=== PATIENT | female | born 1960 | race American Indian/Alaskan Native ===

== ENCOUNTER 2017-07-22 15:56 | Emergency (ER) | payer OTHER ==
[~2017-07-22] VITALS: Ht 167.6 cm; Wt 72.1 kg
[~2017-07-22 15:56] MED LIST: ADVIL200 MG PO; AUGMENTIN 875-1 EACH PO; AZITHROMYCIN500 MG PO; CEPHALEXIN500 MG PO; DIFLUCAN150 MG PO; GLIPIZIDE XL10 MG PO; GLIPIZIDE XL5 MG PO; JANUVIA100 MG PO; JANUVIA50 MG PO; LEVOFLOXACIN500 MG PO; METFORMIN HCL500 MG PO; MIRALAX17 GM PO; NASAL MIST126 ML NAS; NICORETTE2 MG MM; NICOTINE LOZENGE2 MG BUCCAL; NICOTINE PATCH1 EAC1 TD; NORCO 5-325 TA1 EACH PO; SUDAFED 12 HOU120 MG PO
[2017-07-22] MEDS ORDERED: HUMULIN R500 UNIT/1 SUB-Q (16:13)
[2017-07-22] MEDS ORDERED: NORCO 5-325 TA1 EACH PO (18:04)
--- NOTE | 2017-07-23 15:50 | EKG ---
[facility] [address] [facility] [place] [address] Signed Normal sinus rhythm Left axis deviation Right bundle branch block Abnormal ECG No previous ECGs available Confirmed by ALISA SYLVESTER MD ([id number]) on 07/23/2017 3:49:53 PM Electronically Signed By: ALISA SYLVESTER MD 07/23/17 1550 PATIENT NAME: DANTE CHAMBERLAIN Electrocardiogram DATE OF : 64 PHYSICIAN: ALISA SYLVESTER MD REPORT #: [id number] REPORT IS CONFIDENTIAL AND NOT TO BE RELEASED WITHOUT AUTHORIZATION
[2017-11-19] MEDS ORDERED: HYDROXYZINE HCL50 MG PO (21:45)
[2017-11-19] MEDS ORDERED: DICLOFENAC POTA50 MG PO (21:48)
== END 2017-07-22 18:36 | disposition home or self-care (01) ==
LOC: ED 15:56
DX: S42.292A Other displaced fracture of upper end of left humerus, initial encounter for closed fracture (principal); E11.9 Type 2 diabetes mellitus without complications; F17.200 Nicotine dependence, unspecified, uncomplicated; Z88.8 Allergy status to other drugs, medicaments and biological substances; Z79.84 Long term (current) use of oral hypoglycemic drugs; W01.198A Fall on same level from slipping, tripping and stumbling with subsequent striking against other object, initial encounter
CPT/HCPCS: 73030; 93005; 93010; 96374; 96375; 99283; J1170; J1885

== ENCOUNTER 2017-08-07 08:20 | Day surgery (SDC) | payer OTHER ==
[~2017-08-07] VITALS: Ht 167.6 cm; Wt 72.1 kg
[~2017-08-07 08:20] MED LIST changes: +HUMULIN R500 UNIT/1 SUB-Q
--- NOTE | 2017-08-07 11:40 | NUR ---
08/07/17 1140 Anushka Kothari 1119 PT ARRIVED IN PACU WITH ET TUBE IN PLACE. ANESTHESIA DC'D ON ARRIVAL. OXYGEN MASK ON AT 6L WITH SATS 100%.
--- NOTE | 2017-08-07 11:50 | NUR ---
IN TO ROOM, PT ARRIVED FROM PACU. PT TALKING WITH RN'S AND FAMILY IN ROOM. DENIES PAIN AND NAUSEA. WATE AND ICE CREAM GIVEN. VITALS STABLE. DISCUSSED DISCHARGE CRITERIA, PT UNDERSTANDS. CRYO CUFF IN PLACE. NO FURTHER NEEDS AT THE TIME. CALL LIGHT IN REACH.
--- NOTE | 2017-08-07 12:00 | NUR ---
PT'S SISTER TO NURSES STATION FOR RX TO BE DROPPED OFF AT PHARMACY. NO RX FOUND IN CHART OR PACU. CALLED DR. SHIRLEY, WILL SEND RX FROM OFFICE. PT'S SISTER NOTIFIED.
--- NOTE | 2017-08-07 12:20 | NUR ---
IN TO CHECK ON PT, PT TOLERATED WATER AND ICE CREAM. TURKEY SANDWICH ORDERED PER PT REQUEST. NO FURTHER NEEDS AT THIS TIME. CALL LIGHT IN REACH, FAMILY AT BEDSIDE.
--- NOTE | 2017-08-07 13:22 | NUR ---
LE 1300: IN TO SEE PT, PT TOLERATING PO AND SANDWICH. PO PAIN MEDICATION GIVEN. PT ASSITED UP TO BATHROOM, TOLERATED WELL. DENIES PAIN, NAUSEA AND DIZZINESS. PT ADVISED THAT SHE HAD MEET CREATIA FOR DC, PT STATES SHE IS READY TO GO. IV DC'D. PT DRESSED WITH HELP FROM DAUGHTER. INSTRUCTIONS GIVEN, CRYO CUFF SENT WITH PT. ALL QUESTIONS ANSWER. PT WHEELED OUT TO SISTERS CAR.
--- NOTE | 2017-08-08 08:13 | OR ---
[facility] [address] [place], [place] [address] Signed DATE OF OPERATION: 08/07/2017 SURGEON: Meenu Dumont MD PREOPERATIVE DIAGNOSIS: Displaced left proximal humerus fracture, surgical neck. POSTOPERATIVE DIAGNOSIS: Displaced left proximal humerus fracture, surgical neck. PROCEDURE PERFORMED: Open reduction and internal fixation, left proximal humerus. ORACLE BPM DEVELOPER: RAQUEL Montano was critical for positioning, retraction, and wound closure. ANESTHESIA: General with interscalene block. BLOOD LOSS: 125 mL. IMPLANTS: Synthes small proximal humeral locking plate with 3.5 screws. BRIEF HISTORY: Dante is a 57-year-old female, who suffered a ground-level fall about 3 weeks ago. She was initially not medically stable for surgery including methamphetamine use and a blood sugar of 400. DESCRIPTION OF PROCEDURE: Once we got her stabilized, she was taken to the operating room. After adequate anesthesia, she was placed on the operating table in a beach chair position. All downside pressure points were well padded. The shoulder was prepped and draped in standard sterile fashion. The shoulder was approached through standard deltopectoral interval. The skin was incised and taken down to the fascia. The clavipectoral fascia was then incised longitudinally. The cephalic vein was identified and dissected and mobilized laterally. The subdeltoid adhesions were released. There were significant Electronically Signed By: MEENU DUMONT MD 08/08/17 0813 PATIENT NAME: DANTE CHAMBERLAIN OPERATIVE REPORT DATE OF : 64 PHYSICIAN: MEENU DUMONT MD REPORT #: [id number] REPORT IS CONFIDENTIAL AND NOT TO BE RELEASED WITHOUT AUTHORIZATION [facility] [address] [place], [place] [address] Signed adhesions throughout. There was some scarring of the fracture site, although it was quite mobile. We distracted the fracture and cleaned out the fracture site and reduced as best we could given the extensive scarring that had gone on in the periosteum. This was then held using a K-wire and the reduction was found to be adequate, although it was not perfect. The plate was fashioned to fit the lateral aspect of the proximal humerus just posterior to above biceps tuberosity. It was held in position initially using a pin followed by single screw in the proximal into the plate. We then reduced the head to the shaft of the humerus using a 3.5 screw distally. Once we had adequate reduction, then multiple screws were placed proximally using locking technique 3 screws were placed distally. Excellent apposition of the fracture and adequate alignment, although it was off a little bit posteriorly. The screws were in good position. There were no screws too long. The wound was then copiously irrigated with antibiotic solution, closed with #0 Vicryl for the deltopectoral interval and #0 Stratafix for subcutaneous tissue. A Dermabond mesh was applied to the skin, dressed with Mepilex Ag dressing and an Opsite. She was awakened and taken to recovery room in satisfactory condition. All sponge, needle, and instrument counts were correct. Meenu Dumont MD BA/MODL /[id number] cc: [facility] Electronically Signed By: MEENU DUMONT MD 08/08/17 0813 PATIENT NAME: DANTE CHAMBERLAIN OPERATIVE REPORT DATE OF : 64 PHYSICIAN: MEENU DUMONT MD REPORT #: [id number] REPORT IS CONFIDENTIAL AND NOT TO BE RELEASED WITHOUT AUTHORIZATION
[2017-11-19] MEDS ORDERED: HYDROXYZINE HCL50 MG PO (21:45)
[2017-11-19] MEDS ORDERED: DICLOFENAC POTA50 MG PO (21:48)
== END 2017-08-07 13:16 | disposition home or self-care (01) ==
LOC: DS 08:20
PROVIDERS: Specialist
PROC: 0PSD04Z Reposition Left Humeral Head with Internal Fixation Device, Open Approach (ICD-10-PCS; principal; 2017-08-07 11:30)
DX: S42.212A Unspecified displaced fracture of surgical neck of left humerus, initial encounter for closed fracture (principal); E11.9 Type 2 diabetes mellitus without complications; Z98.890 Other specified postprocedural states; Z79.899 Other long term (current) drug therapy; Z88.8 Allergy status to other drugs, medicaments and biological substances
CPT/HCPCS: 00450; 64415; 64417; 73030; 76942; C1713; J0330; J0690; J1100; J2250; J2370; J2405; J2704; J2795; J3010; J7120

== ENCOUNTER → 2017-11-19 | Emergency (ER) | payer OTHER ==
[~2017-11-19] VITALS: Ht 167.6 cm; Wt 72.1 kg
[~2017-11-19] MED LIST changes: +DICLOFENAC POTA50 MG PO; +HYDROXYZINE HCL50 MG PO
--- NOTE | 2017-11-20 14:39 | EKG ---
[facility] [address] [place] [address] Signed Normal sinus rhythm Right bundle branch block Left anterior fascicular block Bifascicular block Cannot rule out Inferior infarct (masked by fascicular block?) , age undetermined Abnormal ECG When compared with ECG of 22-JUL-2017 16:26, Left anterior fascicular block is now present Minimal criteria for Inferior infarct are now present Confirmed by ALISA SYLVESTER MD ([id number]) on 11/20/2017 2:38:54 PM Electronically Signed By: ALISA SYLVESTER MD 11/20/17 1439 PATIENT NAME: DANTE CHAMBERLAIN Electrocardiogram DATE OF : 64 PHYSICIAN: ALISA SYLVESTER MD REPORT #: [id number] REPORT IS CONFIDENTIAL AND NOT TO BE RELEASED WITHOUT AUTHORIZATION
== END ==
LOC: ED 21:33
DX: R07.9 Chest pain, unspecified (principal); E11.65 Type 2 diabetes mellitus with hyperglycemia; F17.200 Nicotine dependence, unspecified, uncomplicated; Z79.84 Long term (current) use of oral hypoglycemic drugs; Z79.899 Other long term (current) drug therapy
CPT/HCPCS: 71045; 80053; 84484; 85025; 93005; 93010; 99284

== ENCOUNTER → 2018-07-06 | Emergency (ER) | payer OTHER ==
[~2018-07-06] VITALS: Ht 167.6 cm; Wt 70.3 kg
[~2018-07-06] MED LIST changes: +GLUCOTROL XL5 MG PO; +HYDROCODON-ACE1 EA10 PO; +IBUPROFEN600 MG PO; +ONE TOUCH ULTR1 EACH XX
--- NOTE | 2018-07-07 07:00 | EKG ---
[facility] [address] [facility] [place] [address] Signed Normal sinus rhythm Right bundle branch block Left anterior fascicular block Bifascicular block Abnormal ECG When compared with ECG of 23-APR-2018 18:33, No significant change was found Confirmed by BRIANNE LAN MD ([id number]) on 07/07/2018 7:00:45 AM Electronically Signed By: BRIANNE LAN MD 07/07/18 0700 PATIENT NAME: DANTE CHAMBERLAIN [place] Electrocardiogram DATE OF : 64 PHYSICIAN: BRIANNE LAN MD REPORT #: [id number] REPORT IS CONFIDENTIAL AND NOT TO BE RELEASED WITHOUT AUTHORIZATION
== END ==
LOC: ED 21:47
DX: L27.0 Generalized skin eruption due to drugs and medicaments taken internally (principal); I95.9 Hypotension, unspecified; T43.625A Adverse effect of amphetamines, initial encounter; E11.9 Type 2 diabetes mellitus without complications; F17.200 Nicotine dependence, unspecified, uncomplicated; Z88.8 Allergy status to other drugs, medicaments and biological substances; Z79.84 Long term (current) use of oral hypoglycemic drugs; Z79.899 Other long term (current) drug therapy
CPT/HCPCS: 71045; 80053; 81001; 83605; 84703; 85025; 87077; 87088; 87186; 93005; 93010; 96374; 99284-25; J7030

== ENCOUNTER 2018-10-25 02:15 | Emergency (ER) | payer OTHER ==
[~2018-10-25] VITALS: Ht 167.6 cm; Wt 74.8 kg
--- OUTSIDE RECORDS SUMMARY | ~2018-10-25 | XMS | Clinical Summary ---
Demographics + + + | Address | [address] | | | [place] [address] | + + + | Home Phone | | + + + | Preferred Language | Unknown | + + + | Marital Status | Single | + + + | Baptist Affiliation | 1076 | + + + | Race | Unknown | + + + | Ethnic Group | Unknown | + + + Author + + + | Author | [facility] | + + + | Organization | [facility] | + + + | Address | Unknown | + + + | Phone | Unavailable | + + + Support + + +---------+ + | Name | Relationship | Address | Phone | + + +---------+ + | Jayna Chamberlain | ECON | Unknown | | + + +---------+ + Care Team Providers + +------+ + | Care Gas Line Servicer Name | Role | Phone | + +------+ + | Bud Delacruz MD | PP | | + +------+ + Allergies + + + + + + | Active Allergy | Reactions | Severity | Noted | Comments | | | | | Date | | + + + + + + | Pioglitazone | Swelling | Medium | 09/10/19 | | | | | | 17 | | + + + + + + | Metformin | Rash | Medium | 09/10/19 | | | | | | 17 | | + + + + + + | Paroxetine | Angioedema | High | 09/10/19 | | | | | | 17 | | + + + + + + Current Medications + + + +---------+------+------+-------+ | Prescription | Sig. | Disp. | Refills | Star | End | Statu | | | | | | t | Date | s | | | | | | Date | | | + + + +---------+------+------+-------+ | glipiZIDE | Take 10 mg by mouth | | | | | Activ | | (GLUCOTROL) 10 MG | daily. | | | | | e | | tablet | | | | | | | + + + +---------+------+------+-------+ | azithromycin | Take 500 mg by mouth | | | | | Activ | | (ZITHROMAX) 500 MG | daily. | | | | | e | | tablet | | | | | | | + + + +---------+------+------+-------+ | Spacer/Aero | 1 Units by Does not | 1 each | 2 | 09/24 | | Activ | | Chamber Mouthpiece | apply route as | | | 07/15 | | e | | MISCIndications: | needed (Pls use with | | | 17 | | | | Reactive airway | your albuterol | | | | | | | disease, unspecified | inhaler). | | | | | | | asthma severity, | | | | | | | | uncomplicated | | | | | | | + + + +---------+------+------+-------+ Active Problems + + + | Problem | Noted Date | + + + | Lung consolidation (HCC) | 09/09/2016 | + + + | Personal history of tobacco use, presenting hazards to health | 09/09/2016 | + + + Social History + +-------+ +--------+ + | Tobacco Use | Types | Packs/Day | Years | Date | | | | | Used | | + +-------+ +--------+ + | Former Smoker | | 1 | 30 | Quit: 08/31/2016 | + +-------+ +--------+ + + +---+---+---+ | Smokeless Tobacco: | | | | | Never Used | | | | + +---+---+---+ + + +---------+ + | Alcohol Use | Drinks/We | oz/Week | Comments | | | ek | | | + + +---------+ + | No | | | | + + +---------+ + + + + | Sex Assigned at | Date Recorded | | | | + + + | Not on file | | + + + Last Filed Vital Signs + + + + | Vital Sign | Reading | Time Taken | + + + + | Blood Pressure | 155/83 | 10/04/2016 3:02 PM PDT | + + + + | Pulse | 84 | 10/04/2016 3:02 PM PDT | + + + + | Temperature | 36.4 C (97.5 F) | 10/04/2016 3:02 PM PDT | + + + + | Respiratory Rate | - | - | + + + + | Oxygen Saturation | 99% | 10/04/2016 3:02 PM PDT | + + + + | Inhaled Oxygen | - | - | | Concentration | | | + + + + | Weight | 72.1 kg (159 lb) | 10/04/2016 3:02 PM PDT | + + + + | Height | 167.6 cm (5' 6") | 10/04/2016 3:02 PM PDT | + + + + | Body Mass Index | 25.66 | 10/04/2016 3:02 PM PDT | + + + + Plan of Treatment + + + + + | Health Maintenance | Due Date | Last Done | Comments | + + + + + | Vaccine: | | | | | Dtap/Tdap/Td (1 - | 1 | | | | Tdap) | | | | + + + + + | Cervical Cancer | | | | | Screening (Pap) | 2 | | | + + + + + | Breast Cancer | | | | | Screening | 2 | | | | (Mammogram) | | | | + + + + + | Colon Cancer | | | | | Screening | 2 | | | | (Colonoscopy) | | | | + + + + + | Vaccine: Zoster (1 | | | | | of 2) | 2 | | | + + + + + | Lung Cancer | | 10/03/2016, 09/01/2016 | | | Screening | 8 | | | + + + + + | Vaccine: Influenza | | | | | (Season Ended) | 9 | | | + + + + + Results Not on filefrom Last 3 Months Insurance + +--------+ +------+-------+ + | Payer | Benefi | Subscriber | Type | Phone | Address | | | t Plan | ID | | | | | | / | | | | | | | Group | | | | | + +--------+ +------+-------+ + | MEDICAID | [place] | [id number] | | | [address] | | | N | | | | [place], [place] | | | [place] | | | | [phone] | | | 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
--- OUTSIDE RECORDS SUMMARY | ~2018-10-25 | XMS | Clinical Summary ---
Demographics + + + | Address | [address] | | | [place] [address] | + + + | Home Phone | | + + + | Preferred Language | Unknown | + + + | Marital Status | Unknown | + + + | Jehovah'S Witness Affiliation | Unknown | + + + | Race | Unknown | + + + | Ethnic Group | Unknown | + + + Author + + + | Author | [facility] | | | [facility] | + + + | Organization | [facility] | | | [facility] [place] | + + + | Address | Unknown | + + + | Phone | Unavailable | + + + Care Team Providers + +------+ + | Care Light Rail Vehicle Operator Name | Role | Phone | + +------+ + PP | Unavailable | + +------+ + Allergies Not on File Medications Not on file Active Problems Not on file Social History + +-------+ +--------+------+ | Tobacco Use | Types | Packs/Day | Years | Date | | | | | Used | | + +-------+ +--------+------+ | Never Assessed | | | | | + +-------+ +--------+------+ + + + | Sex Assigned at | Date Recorded | | | | + + + | Not on file | | + + + + + + + | Job Start Date | Occupation | Industry | + + + + | Not on file | Not on file | Not on file | + + + + + + + + | Travel History | Travel Start | Travel End | + + + + + + | No recent travel history available. | + + Plan of Treatment + + [...] + Results Not on filefrom Last 3 Months"
--- OUTSIDE RECORDS SUMMARY | ~2018-10-25 | XMS | Clinical Summary ---
Demographics + + + | Address | [address] | | | [place] [address] | + + + | Home Phone | | + + + | Preferred Language | Unknown | + + + | Marital Status | Single | + + + | Church Affiliation | 1076 | + + + | Race | Unknown | + + + | Ethnic Group | Unknown | + + + Author + + + | Author | [facility] | + + + | Organization | [facility] | + + + | Address | Unknown | + + + | Phone | Unavailable | + + + Support + + +---------+ + | Name | Relationship | Address | Phone | + + +---------+ + | Jayna Chamberlain | ECON | Unknown | | + + +---------+ + Care Team Providers + +------+ + | Care Supervisor Hairspring Fabrication Name | Role | Phone | + [...] +------+-------+ + | MEDICAID | [place] | [id number] | | | [address] | | | N | | | | [place], [place] | | | [place] | | | | [address] | | | 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
--- OUTSIDE RECORDS SUMMARY | ~2018-10-25 | XMS | Clinical Summary ---
Demographics + + + | Address | [address] | | | [place] [address] | + + + | Home Phone | | + + + | Preferred Language | Unknown | + + + | Marital Status | Unknown | + + + | Quaker Affiliation | Unknown | + + + | Race | Unknown | + + + | Ethnic Group | Unknown | + + + Author + + + | Author | [facility] | | | [facility] | + + + | Organization | [facility] | | | [facility] | + + + | Address | Unknown | + + + | Phone | Unavailable | + + + Care Team Providers + +------+ + | Care Flow Coordinator Name | Role | Phone | + [...]
[2018-10-25] MEDS ORDERED: ERYTHROMYCIN1 GM OP (02:31)
[2018-10-25] MEDS ORDERED: LANTUS100 UNITS/ SUB-Q (02:32)
[2018-10-25] MEDS ORDERED: CLEOCIN HCL300 MG PO (02:42)
== END 2018-10-25 02:56 | disposition home or self-care (01) ==
LOC: ED 02:15
DX: H01.005 Unspecified blepharitis left lower eyelid (principal); E11.9 Type 2 diabetes mellitus without complications; F17.200 Nicotine dependence, unspecified, uncomplicated; Z88.1 Allergy status to other antibiotic agents; Z88.5 Allergy status to narcotic agent; Z88.8 Allergy status to other drugs, medicaments and biological substances; Z79.899 Other long term (current) drug therapy; Z79.4 Long term (current) use of insulin
CPT/HCPCS: 99283

== ENCOUNTER 2021-04-29 08:18 | Emergency (ER) | payer OTHER ==
[~2021-04-29] VITALS: Ht 167.6 cm; Wt 70.3 kg
--- NOTE | ~2021-04-29 | EKG ---
[facility] [address] [facility] [place], [place] [address] Draft EK completed, results pending confirmation PATIENT NAME: CINTIADANTE Electrocardiogram DATE OF : 64 PHYSICIAN: PRELIMINARY REPORT #: [id number] REPORT IS CONFIDENTIAL AND NOT TO BE RELEASED WITHOUT AUTHORIZATION
[~2021-04-29 08:18] MED LIST changes: +CLEOCIN HCL300 MG PO; +ERYTHROMYCIN1 GM OP; +LANTUS100 UNITS/ SUB-Q
[2021-04-29] MEDS ORDERED: OZEMPIC1 MG/0.75 (08:58)
[2021-04-29] MEDS ORDERED: HYDROCODON-ACE1 EA10 PO (14:16)
[2021-04-29] MEDS ORDERED: CIPRO500 MG PO (14:16)
[2021-04-29] MEDS ORDERED: FLOMAX0.4 MG PO (14:16)
[2021-04-29] MEDS ORDERED: ONDANSETRON ODT4 MG PO (14:17)
--- NOTE | 2021-04-30 09:50 | EKG ---
[facility] [address] [address] [address] [place] [address] Signed Normal sinus rhythm with sinus arrhythmia Right bundle branch block Left anterior fascicular block Bifascicular block Abnormal ECG When compared with ECG of 29-APR-2021 09:14, (Unconfirmed) No significant change was found Confirmed by ALISA SYLVESTER MD ([id number]) on 04/30/2021 9:50:39 AM Electronically Signed By: ALISA SYLVESTER MD 04/30/21 0950 PATIENT NAME: DANTE CHAMBERLAIN Electrocardiogram DATE OF : 64 PHYSICIAN: ALISA SYLVESTER MD REPORT #: [id number] REPORT IS CONFIDENTIAL AND NOT TO BE RELEASED WITHOUT AUTHORIZATION
== END 2021-04-29 15:13 | disposition home or self-care (01) ==
LOC: ED 08:18
DX: N13.2 Hydronephrosis with renal and ureteral calculous obstruction (principal); N39.0 Urinary tract infection, site not specified; E11.9 Type 2 diabetes mellitus without complications; F17.200 Nicotine dependence, unspecified, uncomplicated; Z88.1 Allergy status to other antibiotic agents; Z88.5 Allergy status to narcotic agent; Z88.8 Allergy status to other drugs, medicaments and biological substances; Z79.899 Other long term (current) drug therapy; Z79.4 Long term (current) use of insulin
CPT/HCPCS: 51701; 71045; 71260; 74177; 80053; 81001; 83605; 83690; 83735; 84484; 85025; 87088; 93005; 93010; 99285-25; G0480; J0744; J1885; J2270; J2405; J7030; Q9967

== ENCOUNTER 2024-05-17 03:58 | Emergency (ER) | payer OTHER ==
[~2024-05-17] VITALS: Ht 167.6 cm; Wt 70.0 kg
[~2024-05-17 03:58] MED LIST changes: +CIPRO500 MG PO; +FLOMAX0.4 MG PO; +ONDANSETRON ODT4 MG PO; +OSTERA TABLET1 EACH PO; +OZEMPIC1 MG/0.75
[2024-05-17] MEDS ORDERED: LISINOPRIL10 MG (04:06)
[2024-05-17] MEDS ORDERED: ROSUVASTATIN CA10 MG (04:06)
[2024-05-17 04:35] LABS: BASOPHILS 0.7 % (0-2); EOSINOPHILS 0.9 % (0-6); HEMATOCRIT 37.4 % (35.0-50.0); HEMOGLOBIN 12.8 g/dL (12.0-18.0); LYMPHOCYTES 17.7 % (24-44); MCH 30.2 (27-36); MCHC 34.1 g/dl (30-36); MCV 88.4 fl (81-99); MONOCYTES 6.6 % (0-12); NEUTROPHILS 74.1 % (39-80); PLATELET COUNT 231 K/uL (140-440); RBC 4.23 M/ul (4.3-5.7); RDW 14.2 (10.5-15.0)
[2024-05-17 04:52] LABS: ALBUMIN 3.3 g/dL (3.4-5.0); ANION GAP 14.2 (7-21); BILIRUBIN, TOTAL 0.6 ng/dL (0.2-1.0); BUN/CREATININE RATIO 19.44 (6.0-28.6); CALCIUM 8.6 mg/dL (8.5-10.1); CREATININE, SERUM 0.72 mg/dL (0.55-1.02); POTASSIUM 4.2 mmol/L (3.5-5.1); PROTEIN, TOTAL 6.6 g/dL (6.4-8.2)
[2024-05-17] MEDS ORDERED: ACETAMINOPHEN 500 MG TAB PO ONE (05:00)
[2024-05-17] MEDS ORDERED: MORPHINE SULFATE 4 MG/ML VIAL IV ONE (05:00)
[2024-05-17] MEDS ORDERED: FAMOTIDINE 20 MG/ 2 ML VIAL IV ONE (05:30)
[2024-05-17] MEDS ORDERED: HYDROmorphone HCL 1 MG/ML SYR IV PRN (05:30)
[2024-05-17] MEDS ORDERED: CYCLOBENZAPRINE HCL 10 MG TAB PO ONE (05:30)
[2024-05-17] MEDS ORDERED: DEXAMETHASONE SOD PHOS 10 MG/ML VIAL IV ONE (05:30)
[2024-05-17] MEDS ORDERED: IBUPROFEN 800 MG TAB PO ONE (05:30)
[2024-05-17] MEDS ORDERED: ondansetron HCL 4 MG/2 ML VIAL IV ONE (06:30)
[2024-05-17] MEDS ORDERED: LIDODERM1 EACH TOP (07:00)
[2024-05-17] MEDS ORDERED: METHYLPREDNISOLO4 M1 PO (07:00)
[2024-05-17] MEDS ORDERED: ONDANSETRON 4 MG HOME.PACK SL ONE (07:00)
[2024-05-17] MEDS ORDERED: ONDANSETRON HCL4 MG PO (07:00)
[2024-05-17 07:12] VITALS: BP 123/93
== END 2024-05-17 07:12 | disposition home or self-care (01) ==
LOC: ED 03:58
PROVIDERS: Internal Medicine
DX: M54.41 Lumbago with sciatica, right side (principal); E11.9 Type 2 diabetes mellitus without complications; F20.0 Paranoid schizophrenia; Z88.1 Allergy status to other antibiotic agents; Z88.5 Allergy status to narcotic agent; Z88.8 Allergy status to other drugs, medicaments and biological substances; Z79.899 Other long term (current) drug therapy; Z79.4 Long term (current) use of insulin
CPT/HCPCS: 36415; 72131; 80053; 85025; 96374; 96375; 99284-25; A9270; J1100; J1171; J2270; J2405